=== PATIENT | female | born 2000 | race Caucasian/White ===

== ENCOUNTER 2024-01-16 21:14 | Emergency (ER) | payer BC ==
[~2024-01-16] VITALS: Ht 154.9 cm; Wt 68.0 kg
[2024-01-16 21:39] VITALS: BP_SYST 130; PULSE 73; RESP 18; TEMP 98.1; O2SAT 100
[2024-01-16] MEDS: IBUPROFEN 600 MG TABLET PO ONE (22:24)
[2024-01-16] MEDS: ACETAMINOPHEN 500 MG TABLET PO ONE (22:24)
[2024-01-16 22:59] VITALS: BP_SYST 123; PULSE 70; RESP 18; TEMP 98.1; O2SAT 100
== END 2024-01-16 23:00 | disposition home or self-care (01) ==
LOC: SED 21:14
DX: S09.8XXA Other specified injuries of head, initial encounter (principal); W22.8XXA Striking against or struck by other objects, initial encounter; Y93.89 Activity, other specified; Y92.89 Other specified places as the place of occurrence of the external cause; Y99.8 Other external cause status
CPT/HCPCS: 99283